=== PATIENT | male | born 1955 | race Two or more races ===

== ENCOUNTER → 2024-08-11 | Outpatient (CLI) | payer OTHER, SELFPAY ==
[2024-08-11 11:30] LABS: Basophils % (Auto) 1 % (0-2.5); Eosinophils # (Auto) 0.1 Thou/mm3 (0.0-0.5); Eosinophils % (Auto) 2 % (0-10); Hematocrit 41.7 % (41.0-53.0); Hemoglobin 14.6 g/dL (13.5-16.0); Immature Granulocytes % (Auto) 0 % (0-0); Immature Granulocytes Auto 0.01 Thou/mm3 (0.00-0.00); Lymphocytes # (Auto) 1.3 Thou/mm3 (1.0-4.8); Lymphocytes % (Auto) 31 % (10-50); Mean Corpuscular Volume 91 fL (80-100); Monocytes # (Auto) 0.4 Thou/mm3 (0.0-0.8); Monocytes % (Auto) 9 % (0-12); Neutrophils # (Auto) 2.4 Thou/mm3 (1.8-7.7); Neutrophils % (Auto) 58 % (37-80); Nucleated Red Blood Cell % 0 /100 WBC (0); Platelet Count 191 Thou/mm3 (140-440); RDW Standard Deviation 42.9 fL (35.1-43.9); Red Blood Count 4.56 Miln/mm3 (4.50-5.90); White Blood Count 4.2 Thou/mm3 (3.8-10.6)
[2024-08-11 11:47] LABS: B-Type Natriuretic Peptide < 20 pg/mL (0-100)
[2024-08-11 11:55] LABS: Alanine Aminotransferase 30 U/L (10-49); Albumin, Serum 4.4 gm/dL (3.4-4.8); Albumin/Globulin Ratio 1.8 (1.2-2.2); Alkaline Phosphatase 86 U/L (46-116); Anion Gap 5 (7-16); Aspartate Amino Transferase 23 U/L (0-34); BUN/Creatinine Ratio 19 Ratio (12-20); Blood Urea Nitrogen 17 mg/dL (9-23); Calcium 9.5 mg/dL (8.3-10.6); Calcium (Corrected) 9.5 mg/dL (8.5-10.1); Carbon Dioxide 25.6 mMol/L (20.0-31.0); Chloride 106 mMol/L (98-107); Creatinine (Component) 0.9 mg/dL (0.6-1.3); Globulin 2.5 gm/dL (2.3-3.5); Glucose 113 mg/dL (74-106); Osmolality,Calculated 276 (275-295); Sodium 137 mMol/L (136-145); Total Protein 6.9 gm/dL (5.7-8.2); eGFR > 60 See Note
[2024-08-11 12:21] LABS: Collection Type, Urine Clean Catch
[2024-08-11 12:54] LABS: Bilirubin,Urine Negative (Negative); Blood,Urine Negative (Negative); Clarity,Urine Clear (Clear/Hazy); Color,Urine Lt-Yellow (Lt Yel-Yel); Culture Indicated,Urine Not Indicated; Glucose, Urine Negative (Negative); Ketones,Urine Negative (Negative); Leukocyte Esterase,Urine Negative (Negative); Nitrite,Urine Negative (Negative); PH,Urine 6.5 (5.0-7.0); Protein,Urine Negative (Neg - Trace); RBC,Urine 1 /hpf (0-3); Specific Gravity,Urine 1.016 (1.001-1.035); Squamous Epithelial Cell,Urine < 1 /hpf (0-5); Urobilinogen,Urine Negative mg/dL (0.0-1.0); WBC,Urine 1 /hpf (0-5)
[2024-08-19 19:50] LABS: PSA, Free 2.31 ng/mL; PSA, Total 11.6 ng/mL (< OR = 4.0)
== END | disposition home or self-care (01) ==
LOC: CDIM 10:30 → COPL 10:50
PROVIDERS: Referring Provider Nurse Practitioner Family; Visit Provider Nurse Practitioner Family
DX: R22.41 Localized swelling, mass and lump, right lower limb (principal); D72.819 Decreased white blood cell count, unspecified
CPT/HCPCS: 36415; 80053; 81001; 83880; 84153; 84154; 85025

== ENCOUNTER 2025-04-02 15:16 | Emergency (ER) | payer OTHER, SELFPAY ==
[2025-04-02 15:25] VITALS: BP 178/72; PULSE 86; RESP 20; TEMP 38.2; O2SAT 95
--- NOTE | 2025-04-02 15:43 | XR_ITS ---
Examination: CT abdomen and pelvis without contrast. Coronal 3-D reconstructions. Sagittal 2-D reconstructions. Date and time of exam:April 02, 2025, 1614 hours COMPARISON: November 29, 2022 INDICATIONS: Lower abdominal pain and hematuria today, history of prostatomegaly CTDI: vol (mGy): 12.3. DLP: (mGycm): 780. Technique: Axial images of the abdomen have been obtained, 3 mm slice thickness Intravenous contrast material has not been administered. Low dose protocols were performed. One or more of the following dose reduction techniques were used; automated exposure control, adjustment of the mA and/or KV according to patient size, use of iterative reconstruction technique. Findings: 2 mm, adjacent 2 mm pulmonary nodules left lower lobe No visualized liver or splenic lesion Contracted gallbladder No biliary tract dilatation No pancreatic or adrenal mass Mild bilateral hydronephrosis No pericecal inflammatory change No bowel obstruction or diverticulitis Marked distention of the urinary bladder Massive prostatomegaly, AP dimension 8.6 cm Urinary bladder wall thickening up to 5 mm Moderate osteopenia IMPRESSION: Subcentimeter pulmonary nodules left lower lobe, recommend PA lateral chest follow-up Mild bilateral hydronephrosis, markedly distended urinary bladder secondary to massive prostatomegaly Urinary bladder wall thickening, likely early outflow obstruction secondary to the patient's prostatomegaly
--- NOTE | 2025-04-02 15:44 | PD.EDRME ---
Rapid Medical Screening Exam RME Arrival date/time: 04/02/25 15:16 69-year-old male with no known medical history presents to the emergency room with a chief complaint of hematuria, dysuria and feeling like he is not fully emptying his bladder. Patient also states he is having abdominal pain and distention x 3 days I have greeted and performed a focused initial assessment of this patient. A comprehensive ED assessment and evaluation of the patient, analysis of all test results, and completion of the medical decision making process will be conducted by additional ED providers. Chief Complaint: Urogenital-Male Time Seen by Provider: 04/02/25 15:18 Vital signs: Vital Signs Temperature 100.7 F H 04/02/25 15:25 Pulse Rate 86 04/02/25 15:25 Respiratory Rate 20 04/02/25 15:25 Blood Pressure 178/72 H 04/02/25 15:25 Pulse Oximetry (%) 95 04/02/25 15:25 Oxygen Delivery Method Room Air 04/02/25 15:25 Vital signs reviewed by provider: Yes
[2025-04-02 16:14] LABS: Basophils % (Auto) 1 % (0-2.5); Eosinophils # (Auto) 0.1 Thou/mm3 (0.0-0.5); Eosinophils % (Auto) 1 % (0-10); Hematocrit 34.3 % (41.0-53.0); Hemoglobin 12.2 g/dL (13.5-16.0); Immature Granulocytes % (Auto) 0 % (0-0); Immature Granulocytes Auto 0.03 Thou/mm3 (0.00-0.00); Lymphocytes # (Auto) 1.3 Thou/mm3 (1.0-4.8); Lymphocytes % (Auto) 17 % (10-50); Mean Corpuscular HGB Conc 35.6 g/dl (31.0-37.0); Mean Corpuscular Hemoglobin 31.9 pg (25.0-35.0); Mean Corpuscular Volume 90 fL (80-100); Monocytes # (Auto) 0.7 Thou/mm3 (0.0-0.8); Monocytes % (Auto) 9 % (0-12); Neutrophils # (Auto) 5.7 Thou/mm3 (1.8-7.7); Neutrophils % (Auto) 73 % (37-80); Nucleated Red Blood Cell % 0 /100 WBC (0); Platelet Count 229 Thou/mm3 (140-440); RDW Standard Deviation 41.7 fL (35.1-43.9); Red Blood Count 3.83 Miln/mm3 (4.50-5.90); White Blood Count 7.9 Thou/mm3 (3.8-10.6)
[2025-04-02 16:35] LABS: Collection Type, Urine Clean Catch
[2025-04-02 16:36] LABS: Squamous Epithelial Cell,Urine 0 /hpf (0-5)
[2025-04-02] MEDS: HYDROcodone/APAP 5/325 TABLET 1 TAB PO (16:37)
[2025-04-02 16:39] LABS: Alanine Aminotransferase 13 U/L (10-49); Albumin, Serum 4.2 gm/dL (3.4-4.8); Albumin/Globulin Ratio 1.3 (1.2-2.2); Alkaline Phosphatase 99 U/L (46-116); Anion Gap 7 (7-16); Aspartate Amino Transferase 20 U/L (0-34); BUN/Creatinine Ratio 8 Ratio (12-20); Blood Urea Nitrogen 12 mg/dL (9-23); Calcium 9.2 mg/dL (8.3-10.6); Calcium (Corrected) 9.2 mg/dL (8.5-10.1); Chloride 105 mMol/L (98-107); Creatinine (Component) 1.5 mg/dL (0.6-1.3); Globulin 3.2 gm/dL (2.3-3.5); Glucose 111 mg/dL (74-106); Lipase 32 U/L (12-53); Osmolality,Calculated 281 (275-295); Potassium 3.6 mMol/L (3.4-5.1); Sodium 141 mMol/L (136-145); Total Protein 7.4 gm/dL (5.7-8.2); eGFR 49 See Note
[2025-04-02 16:44] LABS: Bacteria,Urine 2+; Bilirubin,Urine Negative (Negative); Blood,Urine 3+ (Negative); Color,Urine Brown (Lt Yel-Yel); Glucose, Urine Negative (Negative); Ketones,Urine Negative (Negative); Leukocyte Esterase,Urine Positive (Negative); Nitrite,Urine Positive (Negative); PH,Urine 6.5 (5.0-7.0); Protein,Urine 1+ (Neg - Trace); RBC,Urine 375 /hpf (0-3); Specific Gravity,Urine 1.007 (1.001-1.035); Urobilinogen,Urine Negative mg/dL (0.0-1.0); WBC,Urine 517 /hpf (0-5)
[2025-04-02 17:13] LABS: Clarity,Urine Hazy (Clear/Hazy)
--- NOTE | 2025-04-02 18:11 | EDNOTE_ITS ---
<Statement entered by Qing Reese MD - 04/02/25 18:52> As co-signing physician, I was present and available for consult prn. I concur with the plan and care as documented by the midlevel provider. ED Male Genitalurinary RME/HPI General Chief complaint: Urogenital-Male Stated complaint: Urinating blood today, bump to the top of his head Time Seen by Provider: 04/02/25 15:18 Arrival date/time: 04/02/25 15:16 RME / HPI RME / HPI Narrative: 69-year-old male with no known medical history presents to the emergency room with a chief complaint of hematuria, dysuria and feeling like he is not fully emptying his bladder. Patient also states he is having abdominal pain and distention x 3 days. Patient also complained of a bump to the top of the head for several months. Pending referral to carpenter assembler. Patient denies any fever denies any other complaints no medication was taken prior to arrival. Related Data Previous Rx's ?Medication ?Instructions ?Recorded levofloxacin 500 mg tablet 500 mg PO QDAY #7 tabs 07/08 11/26 ibuprofen 600 mg tablet 600 mg PO Q6H #30 tabs 07/17 cefuroxime axetil 500 mg tablet 500 mg PO BID #14 tabs 04/02/25 tamsulosin 0.4 mg capsule (Flomax) 0.4 mg PO QDAY #30 caps 04/02/25 Allergies Allergy/AdvReac Type Severity Reaction Status Date / Time No Known Allergies Allergy Verified 04/02/25 15:21 Review of Systems Review of Systems Narrative Review of Systems: Review of system reviewed and within normal limits except mentioned in HPI ED Exam Narrative Physical exam: VITAL SIGNS: Reviewed. GENERAL APPEARANCE: Alert and interactive, follows commands, no acute distress, HEAD AND FACE: Non-traumatic. ENT: PERRL, pink conjunctivitis, eyelid no trauma, Mucous membrane moist. NECK: Supple, nontender, no nuchal rigidity. CHEST: No tenderness, no crepitus, no paradoxical movement, no retractions. LUNGS: Clear, well ventilated, symmetric, no rales, no wheezing, no ronchi, no stridor, good breath sounds bilaterally. HEART: Regular rate, regular rhythm, no murmur, no gallops. ABDOMEN: Soft, positive bowel sounds, nondistended, no guarding, nontender, no r ebound, no masses, suprapubic distention RECTAL: Deferred. GENITAL: Deferred. NEUROLOGICAL: Gross motor function intact sensory function intact, Appropriate for age. MUSCULOSKELETAL: low back nontender, full range of motion. EXTREMITIES: Nontender, full range of motion. SKIN: Color pink, dry, no rash, no lacerations, no abrasions, no contusions. LYMPHATICS: Deferred. Course Quality Measures none Orders Category Date Time Status Franco [Urinary Catheter] QS Care 04/02/25 18:10 Active Franco to Leg Bag Routine Care 04/02/25 18:[address] abdomen pelvis wo con Stat Exams 04/02/25 15:43 Completed CBC Stat Lab 04/02/25 16:02 Completed CMP [Comprehensive Metabolic Panel] Stat Lab 04/02/25 16:02 Completed Lipase Stat Lab 04/02/25 16:02 Completed UA [Urinalysis] Stat Lab 04/02/25 16:23 Completed Urine Culture Stat Lab 04/02/25 16:23 Received 1,000 mg IM w/Lido* 1% Med 04/02/25 18:10 Ordered cefTRIAXone [Rocephin] 1,000 mg Lidocaine 1% 20 ml [Xylocaine 1% 20 ML] 2.1 ml IM X1 HYDROcodone*/APAP 5/325 [[place] 5/325] Med 04/02/25 15:42 Discontinued 1 tab PO X1 ONE Vital Signs Vital signs: Vital Signs Temperature 100.7 F H 04/02/25 15:25 Pulse Rate 86 04/02/25 15:25 Respiratory Rate 20 04/02/25 15:25 Blood Pressure 178/72 H 04/02/25 15:25 Pulse Oximetry (%) 95 04/02/25 15:25 Oxygen Delivery Method Room Air 04/02/25 15:25 Urogenital - Male MDM Narrative MDM Narrative:: 69-year-old male with no known medical history presents to the emergency room with a chief complaint of hematuria, dysuria and feeling like he is not fully emptying his bladder. Patient also states he is having abdominal pain and distention x 3 days. Patient also complained of a bump to the top of the head for several months. Pending referral to carpenter assembler. Patient denies any fever denies any other complaints no medication was taken prior to arrival. Laboratory workup is significant for hematuria and urinary tract infection patient's creatinine today was noted to be 1.5. Franco catheter was inserted and was able to drain more than 500 cc of pinkish colored urine no blood clots noted CT scan of the abdomen pelvis showed prostatomegaly with distended bladder otherwise unremarkable. Patient will be sent home on Franco catheter Patient was given ceftriaxone IM Patient data External records reviewed:: None Clinical information provided by:: patient Social determinants that could affect healthcare access:: none Patient has the following chronic illnesses:: None How is presenting disease/condition affected by chronic disease/condition?: no chronic disease Evaluation data The following diagnostics were reviewed and interpreted by me:: lab results and radiology exam(s) Lab and/or radiology exams considered but not ordered:: None Interpretation Summary: See results MDM Medications / Prescriptions Medications or Prescriptions considered but not ordered:: None Medication administrations:: Medication Administration History Discontinued Medications Hydrocodone Bitart/Acetaminophen (Hydrocodone/Apap 5/325 Tablet) 1 tab PO X1 ONE Stop: 04/02/25 15:43 Last Admin: 04/02/25 16:37 Dose: 1 tab Documented By: JULIUS Ceftriaxone and [place] Consultations Consultation(s) initiated? (list below): No Diagnosis Urogenital Male Differential Diagnosis: urinary tract infection and acute retention of urine Most likely diagnosis given after review of the tests above:: Acute urine retention, UTI, BPH Admission Indicated Admission indicated?: not indicated Admission Request Was there a request for admission?: No Disposition Plan Disposition Plan: Discharge Discharge Attestation Discharge Attestation: The patient and all family members were given an opportunity to ask questions and understood the discharge instructions. Discharge instructions specifically effects, indications for sooner follow up or return to the emergency department, and the expected course of current diagnosis. Patient condition: Stable Discharge Plan Plan Patient Disposition: HOME (Self Care) Discharge Disposition comment: Stable Prescriptions/Referrals Prescriptions/Med Rec: New cefuroxime axetil 500 mg tablet 500 mg PO BID Qty: 14 0RF tamsulosin [Flomax] 0.4 mg capsule 0.4 mg PO QDAY Qty: 30 0RF No Action levofloxacin 500 mg tablet 500 mg PO QDAY Qty: 7 0RF ibuprofen 600 mg tablet 600 mg PO Q6H Qty: 30 0RF Referrals: Elmer Rivers MD [Primary Care Provider] - In 1 week Problem List Clinical Impression: Urinary tract infection, Acute urinary retention, BPH (benign prostatic hyperplasia) Patient/Caregiver Discharge Instructions Discharge Activity: activity as tolerated Education Materials: ED Urinary Retention, Male, ED Bladder Infection, Male (Adult) Additional Instructions: Thank you for the opportunity for serving you today. You are stable for discharged . You are advised to: Follow-up with your PCP in 1 to 2 days Return to ED for worsening of symptoms Increase oral fluids Take medication as prescribed Ask your PCP today for you to a urologist Print Language: Palestinian Stand Alone Forms: Radha Award Info., Patient Portal Info Letter PA/HIGHWAY PAINTER Supervising Physician PA/HIGHWAY PAINTER Supervising Physician: MD Hugh
[2025-04-02] MEDS: cefTRIAXone 1,000 MG, LIDOCAINE 1% 20 ML 2.1 ML IM (18:30)
[2025-04-02 18:54] VITALS: BP 119/86; PULSE 68; RESP 18; TEMP 36.6; O2SAT 98
--- NOTE | 2025-04-02 18:56 | PC.NURSE ---
pts catherter placed and given a leg bag upon exitcarehome
== END 2025-04-02 18:56 | disposition home or self-care (01) ==
PROVIDERS: Nurse Practitioner Family; Emergency Provider Emergency Medicine; PCP Family Medicine
DX: N40.0 Benign prostatic hyperplasia without lower urinary tract symptoms (principal); R33.8 Other retention of urine; N39.0 Urinary tract infection, site not specified; R31.9 Hematuria, unspecified
CPT/HCPCS: 51702; 36415; 74176; 80053; 81001; 83690; 85025; 87077; 87086; 87186; 96372; 99284; A4314; J0696; J3490; A9270

== ENCOUNTER 2025-04-23 10:30 | Emergency (ER) | payer OTHER, SELFPAY ==
[2025-04-23 10:45] VITALS: BP 131/68; PULSE 74; RESP 18; TEMP 37; O2SAT 98; BMI 33.0
--- NOTE | 2025-04-23 10:55 | EDNOTE_ITS ---
ED Male Genitalurinary RME/HPI General Chief complaint: Urogenital-Male Stated complaint: needs catheter removed Time Seen by Provider: 04/23/25 10:42 Source: patient Arrival date/time: 04/23/25 10:30 69-year-old male with a history of BPH presents to the emergency room with a chief complaint of wanting to get his catheter removed. Mode of arrival: ambulatory Limitations: no limitations Related Data Previous Rx's ?Medication ?Instructions ?Recorded levofloxacin 500 mg tablet 500 mg PO QDAY #7 tabs 07/08 11/26 ibuprofen 600 mg tablet 600 mg PO Q6H #30 tabs 07/17 cefuroxime axetil 500 mg tablet 500 mg PO BID #14 tabs 04/02/25 tamsulosin 0.4 mg capsule (Flomax) 0.4 mg PO QDAY #30 caps 04/02/25 Allergies Allergy/AdvReac Type Severity Reaction Status Date / Time No Known Allergies Allergy Verified 04/23/25 10:32 Review of Systems Review of Systems Systems Reviewed: All systems reviewed, normal except as documented Constitutional Constitutional: Reports system reviewed and no additional complaints, except as documented, Denies fatigue, Denies fever(s), Denies headache(s) and Denies weakness Eyes Eyes: Reports system reviewed and no additional complaints, except as documented, Denies blurry vision and Denies change in vision ENT Ears, Nose, Mouth, and Throat: Reports system reviewed and no additional complaints, except as documented, Denies otalgia, Denies headache(s), Denies nasal congestion, Denies throat swelling and Denies vertigo Cardiovascular Cardiovascular: Reports system reviewed and no additional complaints, except as documented, Denies chest pain, Denies dyspnea and Denies dyspnea on exertion Respiratory Respiratory: Reports system reviewed and no additional complaints, except as documented, Denies chest congestion, Denies cough, Denies dyspnea, Denies dyspnea on exertion and Denies wheezing Gastrointestinal Gastrointestinal: Reports system reviewed and no additional complaints, except as documented, Denies abdominal pain, Denies cramping, Denies nausea and Denies vomiting Genitourinary Genitourinary: Reports system reviewed and no additional complaints, except as documented, Denies dysuria and Denies hematuria Musculoskeletal Musculoskeletal: Reports system reviewed and no additional complaints, except as documented and Denies back pain Integumentary/Breasts Skin/Breast: Reports system reviewed and no additional complaints, except as documented and Denies wounds Neurologic Neurologic: Reports system reviewed and no additional complaints, except as documented, Denies confusion, Denies headache(s), Denies lack of coordination, Denies vertigo and Denies weakness Psychiatric Psychiatric: Reports system reviewed and no additional complaints, except as documented, Denies anxiety, Denies confusion, Denies depression, Denies paranoia, Denies suicidal ideation and Denies tactile hallucinations Endocrine Endocrine: Reports system reviewed and no additional complaints, except as documented and Denies fatigue Hematologic/Lymphatic Hematologic/Lymphatic: Reports system reviewed and no additional complaints, except as documented and Denies lymphadenopathy Allergic/Immunologic Allergic/Immunologic: Reports system reviewed and no additional complaints, except as documented, Denies throat swelling, Denies urticaria and Denies wheezing Past Medical History Past Medical History CARDIAC: Negative Cardiac Disorders or Congestive Heart Failure RESPIRATORY: Negative Chronic Obstructive Pulmonary Disease (COPD) or Asthma GENITOURINARY: Negative Renal Disease ENDOCRINE: Negative Diabetes Mellitus Type 1 or Diabetes Mellitus Type 2 HEMATOLOGIC: Negative Sickle Cell Disease Social History SMOKING STATUS: Never smoker ED Exam General Limitations: Present no limitations General appearance: Present alert and in no apparent distress Head Head exam: Present atraumatic Eye Eye exam: Present normal appearance, PERRL and EOMI ENT ENT exam: Present normal exam, normal oropharynx and mucous membranes moist Neck Neck exam: Present normal inspection, full ROM and trachea midline Chest Chest inspection: Present normal inspection and symmetric chest wall rise Respiratory Respiratory exam: Present normal lung sounds bilaterally Cardiovascular Cardiovascular exam: Present regular rate, normal rhythm and normal heart sounds Abdominal Exam Abdominal exam: Present soft and normal bowel sounds Extremities Exam Extremities exam: Present normal inspection and full ROM Back Exam Back exam: Present normal inspection and full ROM Neurological Exam Neurological exam: Present alert, oriented X3 and CN II-XII intact Psychiatric Psychiatric exam: Present normal affect and normal mood Skin Skin exam: Present warm, dry, intact and normal color Course Quality Measures none Orders Category Date Time Status Franco [Urinary Catheter, Remove] ONCE Care 04/23/25 10:55 Active Vital Signs Vital signs: Vital Signs Temperature 98.6 F 04/23/25 10:45 Pulse Rate 74 04/23/25 10:45 Respiratory Rate 18 04/23/25 10:45 Blood Pressure 131/68 H 04/23/25 10:45 Pulse Oximetry (%) 98 04/23/25 10:45 Oxygen Delivery Method Room Air 04/23/25 10:45 Urogenital - Male MDM Narrative MDM Narrative:: 69-year-old male with a history of BPH presents to the emergency room with a chief complaint of wanting to get his catheter removed. Patient states he was seen here in the emergency room for hematuria and urinary retention. Patient states he was given antibiotics which she completed already. Patient states he was seen by his primary care provider and a referral for urologist was placed but due to his other medical problems he states that it is going to take a long time to see the urologist. Patient states he wants his catheter removed and if his symptoms continue he will return to the emergency room. The patient was educated that urinary retention and hematuria can return again but patient still adamant about removing catheter. Physical examination did not show any tenderness to his abdomen. There is no hematuria in his leg bag. Patient states his catheter has been draining with no complications. Catheter was removed with no complications. Patient was educated to return to the emergency room for any evidence of worsening signs or symptoms Patient data External records reviewed:: [facility] previous records Clinical information provided by:: patient Social determinants that could affect healthcare access:: none Patient has the following chronic illnesses:: BPH How is presenting disease/condition affected by chronic disease/condition?: caused by Evaluation data The following diagnostics were reviewed and interpreted by me:: lab results and radiology exam(s) Lab and/or radiology exams considered but not ordered:: Labs and radiology exams considered in order Interpretation Summary: N/A Medications / Prescriptions Medications or Prescriptions considered but not ordered:: Medication not given Medication administrations:: Medication not given Consultations Consultation(s) initiated? (list below): No Diagnosis Urogenital Male Differential Diagnosis: urinary tract infection, prostatitis, acute retention of urine and other (Removal of catheter) Most likely diagnosis given after review of the tests above:: Urinary catheter removal Admission Indicated Admission indicated?: not indicated Admission Request Was there a request for admission?: No Disposition Plan Disposition Plan: Discharge Discharge Attestation Discharge Attestation: The patient and all family members were given an opportunity to ask questions and understood the discharge instructions. Discharge instructions specifically effects, indications for sooner follow up or return to the emergency department, and the expected course of current diagnosis. Patient condition: Stable Discharge Plan Plan Patient Disposition: HOME (Self Care) Discharge Disposition comment: Stable Prescriptions/Referrals Prescriptions/Med Rec: No Action levofloxacin 500 mg tablet 500 mg PO QDAY Qty: 7 0RF ibuprofen 600 mg tablet 600 mg PO Q6H Qty: 30 0RF cefuroxime axetil 500 mg tablet 500 mg PO BID Qty: 14 0RF tamsulosin [Flomax] 0.4 mg capsule 0.4 mg PO QDAY Qty: 30 0RF Problem List Clinical Impression: Encounter for removal of urinary catheter Patient/Caregiver Discharge Instructions Additional Instructions: Please follow-up with your urologist in the next 24 to 48 hours Your catheter was removed. For any evidence of worsening signs or symptoms return to the emergency room immediately Print Language: [place] Stand Alone Forms: Radha Award Info., Patient Portal Info Letter PA/HEATER TENDER Supervising Physician PA/REYES Supervising Physician: Dr. Flores
== END 2025-04-23 11:18 | disposition home or self-care (01) ==
LOC: SERX 11:11
PROVIDERS: Emergency Provider Family Medicine; PCP Internal Medicine
DX: Z46.6 Encounter for fitting and adjustment of urinary device (principal); N40.0 Benign prostatic hyperplasia without lower urinary tract symptoms
CPT/HCPCS: 99283

== ENCOUNTER 2025-04-29 09:05 | Emergency (ER) | payer OTHER, SELFPAY ==
[2025-04-29 09:41] VITALS: BP 116/60; PULSE 83; RESP 17; TEMP 37.1; O2SAT 98; BMI 36.0
--- NOTE | 2025-04-29 09:44 | PD.EDMALE ---
ED Male Genitalurinary RME/HPI General Chief complaint: Urogenital-Male Stated complaint: poss. UTI needs catheter Time Seen by Provider: 04/29/25 09:20 Arrival date/time: 04/29/25 09:05 Limitations: no limitations RME / HPI RME / HPI Narrative: DR. COREY ARTEAGA ED EVALUATION: 69-year-old male with past medical history of enlarged prostate presents to the Emergency Department with complaint of urinary retention and suspected UTI. Patient reports he urinated a small amount prior to arrival and has had difficulty urinating since his Franco catheter was recently removed. He believes he has a UTI. Denies fever, chills, nausea, vomiting, or blood in stool. No hypertension, hyperlipidemia, or diabetes history. Related Data Previous Rx's ?Medication ?Instructions ?Recorded levofloxacin 500 mg tablet 500 mg PO QDAY #7 tabs 07/28/20 ibuprofen 600 mg tablet 600 mg PO Q6H #30 tabs 07/17/23 cefuroxime axetil 500 mg tablet 500 mg PO BID #14 tabs 04/02/25 tamsulosin 0.4 mg capsule (Flomax) 0.4 mg PO QDAY #30 caps 04/02/25 cephalexin 500 mg capsule 500 mg PO Q6H #42 caps 04/29/25 Allergies Allergy/AdvReac Type Severity Reaction Status Date / Time No Known Allergies Allergy Verified 04/29/25 09:08 Review of Systems Review of Systems Systems Reviewed: All systems reviewed, normal except as documented Past Medical History Social History SMOKING STATUS: Never smoker SUBSTANCE USE: does not use ALCOHOL: Never ED Exam General Limitations: Present no limitations General appearance: Present alert and in no apparent distress Head Head exam: Present atraumatic, normocephalic and normal inspection Eye Eye exam: Present normal appearance, PERRL and EOMI ENT ENT exam: Present normal exam, normal oropharynx and mucous membranes moist Neck Neck exam: Present normal inspection, full ROM and trachea midline Chest Chest inspection: Present normal inspection and symmetric chest wall rise Respiratory Respiratory exam: Present normal lung sounds bilaterally Cardiovascular Cardiovascular exam: Present regular rate, normal rhythm and normal heart sounds Abdominal Exam Abdominal exam: Present soft and normal bowel sounds Extremities Exam Extremities exam: Present normal inspection and full ROM Back Exam Back exam: Present normal inspection and full ROM Neurological Exam Neurological exam: Present alert, oriented X3 and CN II-XII intact Psychiatric Psychiatric exam: Present normal affect and normal mood Skin Skin exam: Present warm, dry, intact and normal color Course Quality Measures none Orders Category Date Time Status Franco [Urinary Catheter] QS Care 04/29/25 09:43 Active UA, C/S IF [Urinalysis, C/S if Indicated] Stat Lab 04/29/25 09:54 Completed Urine Culture Stat Lab 04/29/25 09:54 Received Acetaminophen Tab [Tylenol ES Tab] Med 04/29/25 09:44 Discontinued 500 mg PO NOW ONE cefTRIAXone [Rocephin] 1,000 mg Med 04/29/25 11:08 Discontinued Lidocaine 1% 20 ml [Xylocaine 1% 20 ML] 2.1 ml IM X1 Vital Signs Vital signs: Vital Signs Temperature 98.8 F 04/29/25 09:41 Pulse Rate 83 04/29/25 09:41 Respiratory Rate 17 04/29/25 09:41 Blood Pressure 116/60 04/29/25 09:41 Pulse Oximetry (%) 98 04/29/25 09:41 Oxygen Delivery Method Room Air 04/29/25 09:41 Urogenital - Male MDM Narrative MDM Narrative:: IRebeca am scribing for and in the presence of Dr. Prajapati. Patient is a 69-year-old male with medical history notable for BPH, chronic urinary tension present emergency department requesting that his Franco catheter be replaced. Vital signs and exam as above. Concern for urinary tract infection, urinary retention. Patient nonseptic nontoxic at this time, abdomen soft nondistended nontender. Ordered urinalysis as well as postvoid residual bladder scan. PVR greater than 900 cc in his bladder. Placed Franco catheter, draining well no complications. Urinalysis with evidence of infection, provided antibiotics. On reevaluation patient hemodynamically stable not in distress advised to follow-up with his urologist and his primary care doctor as an outpatient. Patient states he does have a urologist. Patient data External records reviewed:: [facility] previous records Clinical information provided by:: patient Social determinants that could affect healthcare access:: none Patient has the following chronic illnesses:: enlarged prostate How is presenting disease/condition affected by chronic disease/condition?: exacerbated by Evaluation data The following diagnostics were reviewed and interpreted by me:: lab results Lab and/or radiology exams considered but not ordered:: none Interpretation Summary: urine shows an UTI Medications / Prescriptions Medications or Prescriptions considered but not ordered:: none Medication administrations:: Medication Administration History Discontinued Medications Acetaminophen (Acetaminophen 500 Mg Tablet) 500 mg PO NOW ONE Stop: 04/29/25 09:45 Last Admin: 04/29/25 10:38 Dose: 500 mg Documented By: DANYEL Ceftriaxone Sodium 1,000 mg/ (Lidocaine HCl 2.1 ml) 0 mg IM X1 ONE Stop: 04/29/25 11:09 Last Admin: 04/29/25 11:37 Dose: 1,000 mg Documented By: DANYEL see above Consultations Consultation(s) initiated? (list below): No Diagnosis Urogenital Male Differential Diagnosis: other (UTI, benign prostatic hyperplasia with obstruction, and post-Rfanco removal urinary retention) Most likely diagnosis given after review of the tests above:: UTI Admission Indicated Admission indicated?: not indicated Admission Request Was there a request for admission?: No Disposition Plan Disposition Plan: Discharge Discharge Attestation Discharge Attestation: The patient and all family members were given an opportunity to ask questions and understood the discharge instructions. Discharge instructions specifically effects, indications for sooner follow up or return to the emergency department, and the expected course of current diagnosis. Patient condition: Stable Discharge Plan Plan Patient Disposition: HOME (Self Care) Prescriptions/Referrals Prescriptions/Med Rec: New cephalexin 500 mg capsule 500 mg PO Q6H Qty: 42 0RF No Action levofloxacin 500 mg tablet 500 mg PO QDAY Qty: 7 0RF ibuprofen 600 mg tablet 600 mg PO Q6H Qty: 30 0RF cefuroxime axetil 500 mg tablet 500 mg PO BID Qty: 14 0RF tamsulosin [Flomax] 0.4 mg capsule 0.4 mg PO QDAY Qty: 30 0RF Problem List Clinical Impression: Urinary tract infection, Acute on chronic urinary retention Patient/Caregiver Discharge Instructions Education Materials: ED Franco Catheter, Care Additional Instructions: Please follow up with your urologist this week and discuss your urinary retention. Print Language: Divehi Stand Alone Forms: Radha Award Info., Patient Portal Info Letter
[2025-04-29 10:00] LABS: Collection Type, Urine Clean Catch; Squamous Epithelial Cell,Urine 0 /hpf (0-5)
--- NOTE | 2025-04-29 10:00 | PC.NURSE ---
BLADDER SCANNER SHOWED AN AVERAGE OF 1000ML OF URINE IN BLADDER. PT CURRENTLY IN DISCOMFORT.
[2025-04-29 10:11] LABS: Bacteria,Urine 4+; Bilirubin,Urine Negative (Negative); Blood,Urine 2+ (Negative); Color,Urine Yellow (Lt Yel-Yel); Glucose, Urine Negative (Negative); Hyaline Casts,Urine 1 /hpf (0-1); Ketones,Urine Negative (Negative); Leukocyte Esterase,Urine Positive (Negative); Nitrite,Urine Negative (Negative); PH,Urine 6.0 (5.0-7.0); Protein,Urine 1+ (Neg - Trace); RBC,Urine 3 /hpf (0-3); Specific Gravity,Urine 1.011 (1.001-1.035); Urobilinogen,Urine Negative mg/dL (0.0-1.0); WBC,Urine 2491 /hpf (0-5)
[2025-04-29 10:12] LABS: Clarity,Urine Cloudy (Clear/Hazy); Culture Indicated,Urine Yes
[2025-04-29] MEDS: ACETAMINOPHEN 500 MG TABLET PO (10:38)
[2025-04-29] MEDS: cefTRIAXone 1,000 MG, LIDOCAINE 1% 20 ML 2.1 ML IM (11:37)
== END 2025-04-29 11:43 | disposition home or self-care (01) ==
LOC: SERX 12:16
PROVIDERS: Emergency Provider Emergency Medicine
DX: N39.0 Urinary tract infection, site not specified (principal); N40.1 Benign prostatic hyperplasia with lower urinary tract symptoms; R33.8 Other retention of urine
CPT/HCPCS: 51702; 81001; 87077; 87086; 87186; 96372; 99283; J0696; J3490; A9270

== ENCOUNTER 2025-06-15 11:14 | Emergency (ER) | payer OTHER, SELFPAY ==
[2025-06-15 11:27] VITALS: BP 168/72; PULSE 82; RESP 18; TEMP 36.9; O2SAT 95
--- NOTE | 2025-06-15 12:05 | PD.EDMALE ---
ED Male Genitalurinary RME/HPI General Chief complaint: General Adult/Misc Complain Stated complaint: NEEDS DOBSON CHANGED Time Seen by Provider: 06/15/25 11:37 Source: patient Arrival date/time: 06/15/25 11:14 69-year-old male with history of BPH presents to the emergency room with a chief complaint of needing his Dobson catheter changed. Patient states he has had it in place for 4 months. Mode of arrival: ambulatory Limitations: no limitations Related Data Previous Rx's ?Medication ?Instructions ?Recorded levofloxacin 500 mg tablet 500 mg PO QDAY #7 tabs 07/28/20 ibuprofen 600 mg tablet 600 mg PO Q6H #30 tabs 07/17/23 cefuroxime axetil 500 mg tablet 500 mg PO BID #14 tabs 04/02/25 tamsulosin 0.4 mg capsule (Flomax) 0.4 mg PO QDAY #30 caps 04/02/25 cephalexin 500 mg capsule 500 mg PO Q6H #42 caps 04/29/25 Allergies Allergy/AdvReac Type Severity Reaction Status Date / Time No Known Allergies Allergy Verified 06/15/25 11:16 Review of Systems Review of Systems Systems Reviewed: All systems reviewed, normal except as documented Constitutional Constitutional: Reports system reviewed and no additional complaints, except as documented, Denies fatigue, Denies fever(s), Denies headache(s) and Denies weakness Eyes Eyes: Reports system reviewed and no additional complaints, except as documented, Denies blurry vision and Denies change in vision ENT Ears, Nose, Mouth, and Throat: Reports system reviewed and no additional complaints, except as documented, Denies otalgia, Denies headache(s), Denies nasal congestion, Denies throat swelling and Denies vertigo Cardiovascular Cardiovascular: Reports system reviewed and no additional complaints, except as documented, Denies chest pain, Denies dyspnea and Denies dyspnea on exertion Respiratory Respiratory: Reports system reviewed and no additional complaints, except as documented, Denies chest congestion, Denies cough, Denies dyspnea, Denies dyspnea on exertion and Denies wheezing Gastrointestinal Gastrointestinal: Reports system reviewed and no additional complaints, except as documented, Denies abdominal pain, Denies cramping, Denies nausea and Denies vomiting Genitourinary Genitourinary: Reports system reviewed and no additional complaints, except as documented, Denies dysuria and Denies hematuria Musculoskeletal Musculoskeletal: Reports system reviewed and no additional complaints, except as documented and Denies back pain Integumentary/Breasts Skin/Breast: Reports system reviewed and no additional complaints, except as documented and Denies wounds Neurologic Neurologic: Reports system reviewed and no additional complaints, except as documented, Denies confusion, Denies headache(s), Denies lack of coordination, Denies vertigo and Denies weakness Psychiatric Psychiatric: Reports system reviewed and no additional complaints, except as documented, Denies anxiety, Denies confusion, Denies depression, Denies paranoia, Denies suicidal ideation and Denies tactile hallucinations Endocrine Endocrine: Reports system reviewed and no additional complaints, except as documented and Denies fatigue Hematologic/Lymphatic Hematologic/Lymphatic: Reports system reviewed and no additional complaints, except as documented and Denies lymphadenopathy Allergic/Immunologic Allergic/Immunologic: Reports system reviewed and no additional complaints, except as documented, Denies throat swelling, Denies urticaria and Denies wheezing Past Medical History Past Medical History CARDIAC: Negative Cardiac Disorders or Congestive Heart Failure RESPIRATORY: Negative Chronic Obstructive Pulmonary Disease (COPD) or Asthma GENITOURINARY: Negative Renal Disease ENDOCRINE: Negative Diabetes Mellitus Type 1 or Diabetes Mellitus Type 2 HEMATOLOGIC: Negative Sickle Cell Disease Social History SMOKING STATUS: Never smoker SUBSTANCE USE: does not use ED Exam General Limitations: Present no limitations General appearance: Present alert and in no apparent distress Head Head exam: Present atraumatic Eye Eye exam: Present normal appearance, PERRL and EOMI ENT ENT exam: Present normal exam, normal oropharynx and mucous membranes moist Neck Neck exam: Present normal inspection, full ROM and trachea midline Chest Chest inspection: Present normal inspection and symmetric chest wall rise Respiratory Respiratory exam: Present normal lung sounds bilaterally Cardiovascular Cardiovascular exam: Present regular rate, normal rhythm and normal heart sounds Abdominal Exam Abdominal exam: Present soft and normal bowel sounds; Absent distention, tenderness, guarding or rebound Extremities Exam Extremities exam: Present normal inspection and full ROM Back Exam Back exam: Present normal inspection and full ROM Neurological Exam Neurological exam: Present alert, oriented X3 and CN II-XII intact Psychiatric Psychiatric exam: Present normal affect and normal mood Skin Skin exam: Present warm, dry, intact and normal color Course Quality Measures none Orders Category Date Time Status Dobson [Urinary Catheter] QS Care 06/15/25 11:36 Active Dobson to Leg Bag Routine Care 06/15/25 11:36 Ordered Vital Signs Vital signs: Vital Signs Temperature 98.4 F 06/15/25 11:27 Pulse Rate 82 06/15/25 11:27 Respiratory Rate 18 06/15/25 11:27 Blood Pressure 168/72 H 06/15/25 11:27 Pulse Oximetry (%) 95 06/15/25 11:27 Oxygen Delivery Method Room Air 06/15/25 11:27 Urogenital - Male MDM Narrative MDM Narrative:: 69-year-old male with history of BPH presents to the emergency room with a chief complaint of needing his Dobson catheter changed. Patient states he has had it in place for 4 months. Patient is hemodynamically stable and in no apparent distress Patient was seen by his urologist 2 days ago and was told that he will need to have a colonoscopy. Patient states his Dobson catheter has been in place for the last 4 months and he is here to get it replaced due to wear and tear. It is currently not leaking. Patient is currently on antibiotics Catheter was changed with no complications Patient was discharged and educated to follow-up with primary care provider in the next 24 to 48 hours and return to the emergency room for any evidence of worsening signs or symptoms Patient data External records reviewed:: [facility] previous records Clinical information provided by:: patient Social determinants that could affect healthcare access:: none Patient has the following chronic illnesses:: No chronic illness How is presenting disease/condition affected by chronic disease/condition?: no chronic disease Evaluation data The following diagnostics were reviewed and interpreted by me:: lab results and radiology exam(s) Lab and/or radiology exams considered but not ordered:: Labs and radiology exams considered and ordered Interpretation Summary: N/A Medications / Prescriptions Medications or Prescriptions considered but not ordered:: No medication given Medication administrations:: No medication given Consultations Consultation(s) initiated? (list below): No Diagnosis Urogenital Male Differential Diagnosis: urinary tract infection, acute retention of urine and other (Encounter for replacement of Dobson catheter) Most likely diagnosis given after review of the tests above:: Encounter for replacement of Dobson catheter Admission Indicated Admission indicated?: not indicated Admission Request Was there a request for admission?: No Disposition Plan Disposition Plan: Discharge Discharge Attestation Discharge Attestation: The patient and all family members were given an opportunity to ask questions and understood the discharge instructions. Discharge instructions specifically effects, indications for sooner follow up or return to the emergency department, and the expected course of current diagnosis. Patient condition: Stable Discharge Plan Plan Patient Disposition: HOME (Self Care) Discharge Disposition comment: Stable Prescriptions/Referrals Prescriptions/Med Rec: No Action levofloxacin 500 mg tablet 500 mg PO QDAY Qty: 7 0RF ibuprofen 600 mg tablet 600 mg PO Q6H Qty: 30 0RF cefuroxime axetil 500 mg tablet 500 mg PO BID Qty: 14 0RF tamsulosin [Flomax] 0.4 mg capsule 0.4 mg PO QDAY Qty: 30 0RF cephalexin 500 mg capsule 500 mg PO Q6H Qty: 42 0RF Problem List Clinical Impression: Encounter for Dobson catheter replacement Patient/Caregiver Discharge Instructions Additional Instructions: Please follow-up with your urologist in the next 24 to 48 hours Please continue to take your antibiotics as prescribed. Your catheter was replaced with no complications For any evidence of worsening signs or symptoms return to the emergency room immediately Print Language: Yoruba Stand Alone Forms: Radha Award Info., Patient Portal Info Letter PA/ACCOUNT SERVICES ANALYST Supervising Physician PA/REYES Supervising Physician: Dr. Ortega
== END 2025-06-15 12:16 | disposition home or self-care (01) ==
LOC: SERX 12:14
PROVIDERS: Emergency Provider Nurse Practitioner Family; PCP Internal Medicine
DX: Z46.6 Encounter for fitting and adjustment of urinary device (principal); N40.0 Benign prostatic hyperplasia without lower urinary tract symptoms
CPT/HCPCS: 51702; 99284; A4314

== ENCOUNTER → 2025-07-16 | Outpatient (CLI) | payer OTHER, SELFPAY ==
--- NOTE | 2025-07-16 10:59 | XR_ITS ---
Examination: Humerus 2 views right Technique: Humerus, AP lateral 2 views Date and time of exam: July 16, 2025, 1102 hours INDICATIONS: Right humerus pain beginning 2 weeks ago FINDINGS: Moderate narrowing glenohumeral joint No shoulder fracture or dislocation No foreign body IMPRESSION: No fracture or dislocation
--- NOTE | 2025-07-16 10:59 | XR_ITS ---
Examination: Forearm, right, 2 views. Technique: Forearm, AP, lateral 2 views Date and time of exam: July 16, 2025, 1102 hours INDICATIONS: Right forearm pain beginning 2 weeks ago. FINDINGS: Moderate narrowing radiocarpal joint No fracture or dislocation Mild osteoarthritis elbow joints IMPRESSION: Moderate narrowing radiocarpal joint Mild osteoarthritis elbow joints
== END | disposition home or self-care (01) ==
PROVIDERS: PCP Nurse Practitioner Family; Referring Provider Nurse Practitioner Family; Visit Provider Nurse Practitioner Family
DX: M19.021 Primary osteoarthritis, right elbow (principal); M25.511 Pain in right shoulder
CPT/HCPCS: 73060; 73090

== ENCOUNTER 2025-07-23 10:10 | Day surgery (SDC) | payer OTHER, SELFPAY ==
--- NOTE | 2025-07-21 07:00 | EKG_ITS ---
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
[2025-07-21 09:20] VITALS: BMI 35.5
[2025-07-21 10:08] LABS: Collection Type, Urine Clean Catch; Squamous Epithelial Cell,Urine 0 /hpf (0-5)
[2025-07-21 10:11] LABS: Basophils # (Auto) 0.0 Thou/mm3 (0.0-0.2); Basophils % (Auto) 1 % (0-2.5); Eosinophils # (Auto) 0.2 Thou/mm3 (0.0-0.5); Eosinophils % (Auto) 4 % (0-10); Hematocrit 40.1 % (41.0-53.0); Hemoglobin 13.8 g/dL (13.5-16.0); Immature Granulocytes Auto 0.02 Thou/mm3 (0.00-0.00); Lymphocytes # (Auto) 1.6 Thou/mm3 (1.0-4.8); Lymphocytes % (Auto) 32 % (10-50); Mean Corpuscular HGB Conc 34.4 g/dl (31.0-37.0); Mean Corpuscular Hemoglobin 31.6 pg (25.0-35.0); Mean Corpuscular Volume 92 fL (80-100); Monocytes # (Auto) 0.5 Thou/mm3 (0.0-0.8); Monocytes % (Auto) 9 % (0-12); Neutrophils # (Auto) 2.7 Thou/mm3 (1.8-7.7); Neutrophils % (Auto) 54 % (37-80); Nucleated Red Blood Cell # 0.00 Thou/mm3 (0.00-0.00); Nucleated Red Blood Cell % 0 /100 WBC (0); Platelet Count 198 Thou/mm3 (140-440); RDW Standard Deviation 47.1 fL (35.1-43.9); Red Blood Count 4.37 Miln/mm3 (4.50-5.90); White Blood Count 5.0 Thou/mm3 (3.8-10.6)
[2025-07-21 10:22] LABS: Bacteria,Urine 1+; Bilirubin,Urine Negative (Negative); Blood,Urine 1+ (Negative); Clarity,Urine Clear (Clear/Hazy); Color,Urine Lt-Yellow (Lt Yel-Yel); Glucose, Urine Negative (Negative); Ketones,Urine Negative (Negative); Leukocyte Esterase,Urine Positive (Negative); Nitrite,Urine Negative (Negative); PH,Urine 6.5 (5.0-7.0); Protein,Urine Trace (Neg - Trace); RBC,Urine 25 /hpf (0-3); Specific Gravity,Urine 1.011 (1.001-1.035); Urobilinogen,Urine Negative mg/dL (0.0-1.0); WBC,Urine 35 /hpf (0-5)
[2025-07-21 10:39] LABS: Alanine Aminotransferase 15 U/L (10-49); Albumin, Serum 4.1 gm/dL (3.4-4.8); Albumin/Globulin Ratio 1.6 (1.2-2.2); Alkaline Phosphatase 78 U/L (46-116); Anion Gap 9 (7-16); Aspartate Amino Transferase 19 U/L (0-34); BUN/Creatinine Ratio 10 Ratio (12-20); Bilirubin,Total 0.9 mg/dL (0.3-1.2); Blood Urea Nitrogen 9 mg/dL (9-23); Calcium 9.2 mg/dL (8.3-10.6); Calcium (Corrected) 9.2 mg/dL (8.5-10.1); Carbon Dioxide 29.2 mMol/L (20.0-31.0); Chloride 106 mMol/L (98-107); Creatinine (Component) 0.9 mg/dL (0.6-1.3); Estimated Creatinine Clearance 84.8 mL/min (>60); Globulin 2.6 gm/dL (2.3-3.5); Glucose 105 mg/dL (74-106); Osmolality,Calculated 285 (275-295); Potassium 4.0 mMol/L (3.4-5.1); Sodium 144 mMol/L (136-145); Total Protein 6.7 gm/dL (5.7-8.2); eGFR > 60 See Note
--- NOTE | 2025-07-22 12:25 | ESHP_ITS ---
RE: THERESA JAUREGUI : 1955 DATE OF ADMISSION: 07/22/2025 HISTORY OF PRESENT ILLNESS: Patient is a 69-year-old gentleman with history of urinary retention. PSA is 11.6. He also had some blood in his urine. Patient has history of some prostate cancer and was treated by Dr. Odom in the past. PAST SURGICAL HISTORY: Previous surgery cholecystectomy. SOCIAL HISTORY: He has 3 children. PAST MEDICAL HISTORY: No history of diabetes mellitus, no history of hypertension. HOME MEDICATIONS: Tamsulosin before. ALLERGIES: NONE KNOWN. PHYSICAL EXAMINATION: HEENT: Normal. Neck: Supple. Lungs: Clear. Cardiovascular: Heart sounds are normal. Abdomen: Soft without any organomegaly. No guarding, no rigidity. Extremities: Normal. : Phallus is normal. There is a Franco catheter in place testes are down in scrotum. Rectal examination reveals large prostate without any hard nodules. IMPRESSION: 1. Prostatism. 2. Prostatic obstruction. 3. Urinary retention. 4. Elevated PSA 11.6. PLAN: Cystoscopy, transrectal prostatic ultrasound with ultrasound guided prostatic needle biopsy. Patient had a CT scan of the abdomen and pelvis which revealed massive prostatomegaly with an AP dimension 8.6 cm. DT: 11:59:15 TT: 12:23:00 Ref: [id number] - TID: [id number]
[2025-07-23 10:33] VITALS: BP 151/78; PULSE 65; PULSE 80; RESP 16; TEMP 36.3; O2SAT 99
[2025-07-23] MEDS: RINGERS LACTATED 1000 ML 1,000 ML 20 ML IV (10:44)
--- NOTE | 2025-07-23 10:57 | SUR.PREOP ---
Patient expressed gratitude for prayer before their procedure.
--- NOTE | 2025-07-23 12:15 | XR_ITS ---
EXAMINATION: Transrectal prostate sonography Date and time: July 23, 2025, 1211 hours INDICATIONS: Prostate biopsies in the operative Room 5 physician TECHNIQUE AND FINDINGS: Grayscale sonographic images prostate for biopsy guidance Prostate volume 138.41 cc IMPRESSION: Transrectal prostate sonographic images for prostate biopsies
[2025-07-23 12:29] VITALS: BP 120/69; PULSE 67; RESP 16; TEMP 36.7; O2SAT 98
--- NOTE | 2025-07-23 12:29 | SUR.PHASEI ---
1229: received pt from OR via [facility]. received report from SOO Aparicio and Dr. Sosa. pt alert and oriented. no s/s pain or discomfort. no s/s of resp. distress or discomfort. no bleeding noted from penis. yusuf cath in place and intact with pinkish color urine.
[2025-07-23 12:35] VITALS: BP 115/82; PULSE 62; RESP 14; TEMP 36.7; O2SAT 99
[2025-07-23 12:40] VITALS: BP 127/80; PULSE 57; RESP 14; TEMP 36.5; O2SAT 97
--- NOTE | 2025-07-23 12:45 | SUR.PHASEI ---
Tolerating ice chips and water PO. No c/o pain nor n/v.
[2025-07-23 13:00] VITALS: BP 147/93; PULSE 64; RESP 16; TEMP 36.3; O2SAT 100
[2025-07-23 13:20] VITALS: BP 140/80; PULSE 60; RESP 13; TEMP 36.4; O2SAT 98
--- NOTE | 2025-07-23 16:16 | ESOP_ITS ---
RE: THERESA JAUREGUI : 1955 DATE OF OPERATION: 07/23/2025 PREOPERATIVE DIAGNOSES: Prostatism, prostatic obstruction, and elevated PSA of 11.6. History of possible cancer of the prostate. The patient has been treated by Dr. Odom before but there is no record on the hospital's chart and I have no record of that. POSTOPERATIVE DIAGNOSES: Prostatism, prostatic obstruction, elevated PSA of 11.6, history of possible cancer of the prostate, and catheter cystitis. PROCEDURES PERFORMED: Cystoscopy, transurethral bladder biopsies, transrectal prostatic ultrasound with ultrasound guided prostatic needle biopsy, and reinsertion of the Franco catheter. ANESTHESIA: Monitored anesthesia by Dr. Sosa. INDICATION: The patient is a 70-year-old gentleman with history of prostatism and prostatic obstruction. He went in urinary retention. He has been wearing a Franco catheter since May of this year. The patient was treated by Dr. Odom before and patient says there is some history of prostate cancer but there is no record in the hospital record and I did not get any record from Dr. Odom's office. The patient has been carrying a Franco catheter. His PSA has been up to 11.6. He is now scheduled to have cystoscopy and transrectal prostatic ultrasound with ultrasound guided prostatic needle biopsy. Planned procedure, risks, and complications have been discussed with the patient. The patient understood them and agreed to proceed. DESCRIPTION OF PROCEDURE: After the patient was brought to the operating table under adequate monitored anesthesia and dorsal lithotomy position, the Franco catheter from the bladder was removed. Cystoscope was then introduced into the bladder which revealed adequate urethral meatus and normal-appearing urethra. Prostate is bilobed, moderate to large prostate. There are some catheter cystitis changes. To rule out any bladder cancer, I did biopsies of that area on the dome of the bladder which is about 1 cm in size and appeared papillary in nature. I burnt and did a Bugbee electrode and burnt this area with a Bugbee electrode. There are no intravesical stones or tumors. Ureteral orifices are found to be normal in position and appearance. Scope was withdrawn. The patient was then turned in left lateral position and transrectal prostatic ultrasound was carried out. Biopsies were obtained from both lobes using ultrasound guidance. Prostatic volume was measured at 138.4 cubic cm. After the biopsies were done, the patient was then turned in supine position and in sterile condition, a 16 inch Macedonian Franco catheter was then inserted into the bladder and was left indwelling. The patient tolerated the entire procedure well and left the room in good condition. DT: 12:58:46 TT: 16:14:00 Ref: [id number] - TID: [id number]
== END 2025-07-23 13:36 | disposition home or self-care (01) ==
PROVIDERS: Anesthesiology; Absent Provider Surgery; PCP Internal Medicine; Referring Provider Surgery; Visit Provider Surgery
PROC: 0TJB8ZZ Inspection of Bladder, Via Natural or Artificial Opening Endoscopic (ICD-10-PCS; CPT 52000; principal; 2025-07-23 12:15)
PROC: (CPT 55700; 2025-07-23 12:15)
DX: N40.1 Benign prostatic hyperplasia with lower urinary tract symptoms (principal); N13.8 Other obstructive and reflux uropathy; R33.8 Other retention of urine; Z01.810 Encounter for preprocedural cardiovascular examination; N30.01 Acute cystitis with hematuria; N30.21 Other chronic cystitis with hematuria
CPT/HCPCS: 52204; 55700; 36415; 76942; 80053; 81001; 85025; 87077; 87086; 87186; 93005; A4217; A4649; J0694; J2704; J3010; J7120

== ENCOUNTER 2025-08-12 23:32 | Emergency (ER) | payer OTHER, SELFPAY ==
[2025-08-12 23:47] VITALS: BP 152/64; PULSE 93; RESP 18; TEMP 37.4; O2SAT 98
--- NOTE | 2025-08-13 00:15 | PD.EDMALE ---
ED Male Genitalurinary RME/HPI General Chief complaint: Urogenital-Male Stated complaint: UNABLE TO URINATE Time Seen by Provider: 08/12/25 23:54 Source: patient, RN notes reviewed and old records reviewed Arrival date/time: 08/12/25 23:32 Mode of arrival: ambulatory Limitations: no limitations RME / HPI RME / HPI Narrative: 70yom presents to ED for urinary retention. Patient states Dr. Read removed yusuf in clinic at 1000 this morning, patient has been unable to urinate since then. He c/o bladder fullness. No fever, nausea/vomiting or flank pain reported. 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 Home Medications ?Medication ?Instructions ?Recorded ?Confirmed No Known Home Medications 07/21/25 07/21/25 Allergies Allergy/AdvReac Type Severity Reaction Status Date / Time No Known Allergies Allergy Verified 07/23/25 10:32 Review of Systems Review of Systems Systems Reviewed: All systems reviewed, normal except as documented Genitourinary Comments: Reports urine retention, bladder pain Past Medical History Past Medical History GASTROINTESTINAL: Positive Obesity GENITOURINARY: Positive Benign Prostatic Hyperplasia Surgical History SURGICAL: Positive Abdominal Surgery (Appendectomy) Social History SMOKING STATUS: Never smoker SUBSTANCE USE: does not use ALCOHOL: Never ED Exam General Limitations: Present no limitations General appearance: Present alert, in no apparent distress and other (Appears uncomfortable 2/2 pain) Head Head exam: Present atraumatic and normocephalic Eye Eye exam: Present normal appearance, PERRL and EOMI ENT ENT exam: Present normal exam and mucous membranes moist Neck Neck exam: Present normal inspection and full ROM Chest Chest inspection: Present normal inspection and symmetric chest wall rise Respiratory Respiratory exam: Present normal lung sounds bilaterally; Absent respiratory distress Cardiovascular Cardiovascular exam: Present regular rate and normal rhythm Abdominal Exam Abdominal exam: Present soft, distention (Bladder) and tenderness (Suprapubic); Absent guarding or rebound Extremities Exam Extremities exam: Present normal inspection and full ROM Back Exam Back exam: Absent CVA tenderness (R) or CVA tenderness (L) Neurological Exam Neurological exam: Present alert and oriented X3 Psychiatric Psychiatric exam: Present normal affect and normal mood Skin Skin exam: Present warm, dry, intact and normal color Course Quality Measures none Vital Signs Vital signs: Vital Signs Temperature 99.3 F 08/12/25 23:47 Pulse Rate 93 08/12/25 23:47 Respiratory Rate 18 08/12/25 23:47 Blood Pressure 152/64 H 08/12/25 23:47 Pulse Oximetry (%) 98 08/12/25 23:47 Oxygen Delivery Method Room Air 08/12/25 23:47 Urogenital - Male MDM Narrative MDM Narrative:: 70yom presents to ED for urinary retention. Patient states Dr. Read removed yusuf in clinic at 1000 this morning, patient has been unable to urinate since then. He c/o bladder fullness. No fever, nausea/vomiting or flank pain reported. 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 Encouraged close follow-up with urology. Stable for discharge, RTED precautions given Patient data External records reviewed:: [facility] previous records (06/15/2025 ED visit for Yusuf catheter replacement) Clinical information provided by:: patient Social determinants that could affect healthcare access:: none Patient has the following chronic illnesses:: BPH How is presenting disease/condition affected by chronic disease/condition?: caused by Evaluation data The following diagnostics were reviewed and interpreted by me:: other (specify) (None) Lab and/or radiology exams considered but not ordered:: UA Interpretation Summary: na Medications / Prescriptions Medications or Prescriptions considered but not ordered:: None Medication administrations:: None Consultations Consultation(s) initiated? (list below): No Diagnosis Urogenital Male Differential Diagnosis: urinary tract infection, urethritis, prostatitis and acute retention of urine Most likely diagnosis given after review of the tests above:: Urinary retention Admission Indicated Admission indicated?: not indicated Admission Request Was there a request for admission?: No Disposition Plan Disposition Plan: Discharge Discharge Attestation Discharge Attestation: The patient and all family members were given an opportunity to ask questions and understood the discharge instructions. Discharge instructions specifically effects, indications for sooner follow up or return to the emergency department, and the expected course of current diagnosis. Patient condition: Stable Discharge Plan Plan Patient Disposition: HOME (Self Care) Patient condition on transfer: Stable Prescriptions/Referrals Prescriptions/Med Rec: No Action No Known Home Medications Problem List Clinical Impression: Acute retention of urine Patient/Caregiver Discharge Instructions Education Materials: ED Urinary Retention, Male Additional Instructions: Follow-up with Dr. Read in clinic Print Language: Greek Stand Alone Forms: Radha Award Info., Patient Portal Info Letter PA/FOUNDER / CEO Supervising Physician ROBERT/FOUNDER / CEO Supervising Physician: Emir
== END 2025-08-13 01:07 | disposition home or self-care (01) ==
LOC: SERX 08-13 00:47
PROVIDERS: Emergency Provider Emergency Medicine; PCP Internal Medicine
DX: R33.9 Retention of urine, unspecified (principal)
CPT/HCPCS: 51702; 99282; A4314

== ENCOUNTER 2025-09-01 23:57 | Emergency (ER) | payer OTHER, SELFPAY ==
[2025-09-01 23:58] VITALS: BP 156/79; PULSE 100; RESP 18; TEMP 37; O2SAT 96
[2025-09-02 00:30] LABS: Collection Type, Urine Clean Catch
--- NOTE | 2025-09-02 00:30 | PD.EDMALE ---
ED Male Genitalurinary RME/HPI General Chief complaint: Urogenital-Male Stated complaint: CANT URINATE Time Seen by Provider: 09/02/25 00:21 Arrival date/time: 09/01/25 23:57 RME / HPI RME / HPI Narrative: See [facility] for Dr. Chiu's HPI Documentation. Related Data Previous Rx's ?Medication ?Instructions ?Recorded cefdinir 300 mg capsule 300 mg PO BID #14 caps 09/02/25 Allergies Allergy/AdvReac Type Severity Reaction Status Date / Time No Known Allergies Allergy Verified 09/01/25 23:58 Review of Systems Review of Systems Systems Reviewed: All systems reviewed, normal except as documented Past Medical History Past Medical History GASTROINTESTINAL: Positive Gastrointestinal Disorders and Obesity GENITOURINARY: Positive Genitourinary Disorders and Benign Prostatic Hyperplasia MUSCULOSKELETAL: Positive Musculoskeletal Disorders, Arthritis and Poliovirus (as a child, face droop) Family History FAMILY HISTORY: Positive Family Cardiac Disorders Surgical History SURGICAL: Positive Abdominal Surgery (Appendectomy) ED Exam Narrative Physical exam: See [facility] for Dr. Chiu's Physical Exam Documentation. Course Quality Measures none Orders Category Date Time Status Franco [Urinary Catheter] QS Care 09/02/25 00:32 Completed Franco to Leg Bag Routine Care 09/02/25 00:11 Ordered UA, C/S IF [Urinalysis, C/S if Indicated] Stat Lab 09/02/25 00:25 Completed Urine Culture Stat Lab 09/02/25 00:25 Received cefTRIAXone [Rocephin] 1,000 mg Med 09/02/25 00:58 Discontinued Lidocaine 1% Pf Vial 5ml [Xylocaine 1% 5 ml] 2.1 ml IM X1 cefTRIAXone/D5w 1gm IV premix [Rocephin/D5w 1gm IV Med 09/02/25 00:48 Discontinued premix] 1 g in 50 ml IV X1 Vital Signs Vital signs: Vital Signs Temperature 98.6 F 09/01/25 23:58 Pulse Rate 100 09/01/25 23:58 Respiratory Rate 18 09/01/25 23:58 Blood Pressure 156/79 H 09/01/25 23:58 Pulse Oximetry (%) 96 09/01/25 23:58 Oxygen Delivery Method Room Air 09/01/25 23:58 Urogenital - Male MDM Narrative MDM Narrative:: This section includes all my notes and documentations, including HPI, PE, and ED course. Nguyễn Chiu MD HPI: 70 y/o male with Hx of BPH presents with urine retention all day today after his Franco was removed at his doctor's office in the morning. No back pain or flank pain or abdominal pain. No fever or chills. No hematuria. No other complaints. ROS: All negative except as documented in HPI. Physical Exam: General: Alert and oriented. No acute distress when remaining still. Eyes: Conjunctivae and lids clear. ENT: No nasal congestion. Neck: Supple. Heart: RRR. Lungs: No respiratory distress. Good air movement. No rhonchi, wheezing, rales. Abdomen: Soft and nontender. Normal bowel sounds. No distension. No rebound or guarding. Back: No CVA tenderness. Skin: Warm and dry. Neuro: Alert and oriented X 3. I reviewed all diagnostic test results: UA remarkable for leukocyte esterase, 26 RBC, 34 WBC. At this point, diagnoses include: Urinary Retention UTI Treatment here included: Rocephin 1 G IM Franco Catheter Placement Recommended outpatient treatment. Based on my best medical judgment, made decision no further evaluation or treatment indicated at this time. Patient understands and agrees to the discharge instructions customized and printed, see below. Discharge instructions from Dr. Chiu: 1. After evaluation, you have UTI (see attached handout). 2. Take cefdinir to kill the germs causing the infection. 3. For good hydration, increase oral fluid and maintain clear urine. If dark or yellow, increase oral fluid. 4. Care of the Franco catheter as instructed in the attached handout. 5. See a private doctor on 09/06/2025 for recheck. Ask to check the final urine culture results from today to make sure cefdinir doesn't need to be changed due to resistance. Ask for referral to see urologist. 6. Seek immediate medical care with worsening, fever, or with any concerns. Nguyễn Chiu MD Patient data External records reviewed:: [facility] previous records (Reviewed prior ED records from 08/13/25. Patient was seen for Acute retention of urine.) Clinical information provided by:: patient Social determinants that could affect healthcare access:: none Patient has the following chronic illnesses:: Obesity, Benign Prostatic Hyperplasia, Arthritis and Poliovirus How is presenting disease/condition affected by chronic disease/condition?: exacerbated by Evaluation data The following diagnostics were reviewed and interpreted by me:: lab results Lab and/or radiology exams considered but not ordered:: None Interpretation Summary: I reviewed all diagnostic test results: UA remarkable for leukocyte esterase, 26 RBC, 34 WBC. Medications / Prescriptions Medications or Prescriptions considered but not ordered:: None Medication administrations:: Medication Administration History Discontinued Medications Ceftriaxone Sodium 1,000 mg/ (Lidocaine HCl 2.1 ml) 0 mg IM X1 ONE Stop: 09/02/25 00:59 Last Admin: 09/02/25 01:10 Dose: 2.1 mg Documented By: ENDER Ceftriaxone Sodium/Dextrose (Rocephin/D5w 1gm Iv Premix) 1 g in 50 mls @ 100 mls/hr IV X1 ONE Stop: 09/02/25 01:17 Last Admin: 09/02/25 00:59 Dose: Not Given Documented By: JOSEPH Non-Admin Reason: Cancelled by Provider Rocephin 1 G IM Franco catheter insertion Consultations Consultation(s) initiated? (list below): No Diagnosis Urogenital Male Differential Diagnosis: urinary tract infection, acute retention of urine and other Most likely diagnosis given after review of the tests above:: Urinary Retention UTI Admission Indicated Admission indicated?: not indicated Explain why admission is indicated or not indicated:: With significant improvement and no condition needing emergent intervention, there was no indication for admission. Admission Request Was there a request for admission?: No Disposition Plan Disposition Plan: Discharge Discharge Attestation Discharge Attestation: The patient and all family members were given an opportunity to ask questions and understood the discharge instructions. Discharge instructions specifically effects, indications for sooner follow up or return to the emergency department, and the expected course of current diagnosis. Patient condition: Stable Discharge Plan Plan Patient Disposition: HOME (Self Care) Prescriptions/Referrals Prescriptions/Med Rec: New cefdinir 300 mg capsule 300 mg PO BID Qty: 14 0RF Problem List Clinical Impression: Urinary tract infection, Urinary retention Patient/Caregiver Discharge Instructions Discharge Activity: activity as tolerated Education Materials: ED Franco Catheter, Care, ED Bladder Infection, Male (Adult) Additional Instructions: Discharge instructions from Dr. Chiu: 1. After evaluation, you have UTI (see attached handout). 2. Take cefdinir to kill the germs causing the infection. 3. For good hydration, increase oral fluid and maintain clear urine. If dark or yellow, increase oral fluid. 4. Care of the Franco catheter as instructed in the attached handout. 5. See a private doctor on 09/06/2025 for recheck. Ask to check the final urine culture results from today to make sure cefdinir doesn't need to be changed due to resistance. Ask for referral to see urologist. 6. Seek immediate medical care with worsening, fever, or with any concerns. Print Language: Mozambican Stand Alone Forms: Radha Award Info., Patient Portal Info Letter
[2025-09-02 00:35] LABS: Bilirubin,Urine Negative (Negative); Blood,Urine 2+ (Negative); Clarity,Urine Clear (Clear/Hazy); Color,Urine Lt-Yellow (Lt Yel-Yel); Glucose, Urine Negative (Negative); Hyaline Casts,Urine < 1 /hpf (0-1); Ketones,Urine Negative (Negative); Leukocyte Esterase,Urine Positive (Negative); Nitrite,Urine Negative (Negative); PH,Urine 5.5 (5.0-7.0); Protein,Urine Negative (Neg - Trace); RBC,Urine 26 /hpf (0-3); Specific Gravity,Urine 1.013 (1.001-1.035); Squamous Epithelial Cell,Urine < 1 /hpf (0-5); Urobilinogen,Urine Negative mg/dL (0.0-1.0); WBC,Urine 34 /hpf (0-5)
[2025-09-02 00:43] LABS: Culture Indicated,Urine Yes
== END 2025-09-02 01:15 | disposition home or self-care (01) ==
LOC: SERX 09-02 02:25
PROVIDERS: Emergency Provider Emergency Medicine
DX: N39.0 Urinary tract infection, site not specified (principal); N40.1 Benign prostatic hyperplasia with lower urinary tract symptoms; R33.8 Other retention of urine
CPT/HCPCS: 51702; 81001; 87077; 87086; 87186; 96372; 99283; A4314; J0696; J3490

== ENCOUNTER 2025-09-29 12:35 | Emergency (ER) | payer OTHER, SELFPAY ==
[2025-09-29 13:06] VITALS: BP 144/53; PULSE 88; RESP 20; TEMP 37; O2SAT 98
--- NOTE | 2025-09-29 13:19 | EDNOTE_ITS ---
ED Male Genitalurinary RME/HPI General Chief complaint: Urogenital-Male Stated complaint: NEEDS DOBSON CATH REPLACED Time Seen by Provider: 09/29/25 12:39 Arrival date/time: 09/29/25 12:35 70-year-old male presents to the emergency department today requesting Dobson catheter placement patient has Dobson catheter in place and reports that is leaking patient reports he has follow-up next month with specialist Limitations: no limitations Related Data Previous Rx's ?Medication ?Instructions ?Recorded cefdinir 300 mg capsule 300 mg PO BID #14 caps 09/02 Allergies Allergy/AdvReac Type Severity Reaction Status Date / Time No Known Allergies Allergy Verified 09/29/25 12:37 Review of Systems Review of Systems Systems Reviewed: All systems reviewed, normal except as documented Constitutional Constitutional: Reports system reviewed and no additional complaints, except as documented, Denies fever(s) and Denies headache(s) Eyes Eyes: Reports system reviewed and no additional complaints, except as documented and Denies blurry vision ENT Ears, Nose, Mouth, and Throat: Reports system reviewed and no additional complaints, except as documented, Denies headache(s), Denies nasal congestion and Denies nasal discharge Cardiovascular Cardiovascular: Reports system reviewed and no additional complaints, except as documented, Denies chest pain and Denies dyspnea Respiratory Respiratory: Reports system reviewed and no additional complaints, except as documented, Denies chest congestion, Denies cough and Denies dyspnea Gastrointestinal Gastrointestinal: Reports system reviewed and no additional complaints, except as documented and Denies abdominal pain Genitourinary Genitourinary: Reports system reviewed and no additional complaints, except as documented, Denies dysuria and Reports other (Dobson catheter in place) Integumentary/Breasts Skin/Breast: Reports system reviewed and no additional complaints, except as documented and Denies rash Neurologic Neurologic: Reports system reviewed and no additional complaints, except as documented, Reports as per HPI and Denies headache(s) Past Medical History Past Medical History NEUROLOGIC: Negative Neurological Disorders or Seizures CARDIAC: Negative Cardiac Disorders or Congestive Heart Failure RESPIRATORY: Negative Chronic Obstructive Pulmonary Disease (COPD) or Asthma GASTROINTESTINAL: Positive Gastrointestinal Disorders and Obesity; Negative Hepatitis GENITOURINARY: Positive Genitourinary Disorders and Benign Prostatic Hyperplasia; Negative Renal Disease MUSCULOSKELETAL: Positive Musculoskeletal Disorders, Arthritis and Poliovirus (as a child, face droop) ENDOCRINE: Negative Endocrine Disorders, Diabetes Mellitus Type 1 or Diabetes Mellitus Type 2 HEMATOLOGIC: Negative Blood Disorders or Sickle Cell Disease OTHER HISTORY: Negative Hospitalization, Autoimmune Disease, Down Syndrome, Developmental Delay, Shingles, Blood Transfusions, Blood Transfusion Reaction, Anesthesia Reactions, Human Immunodeficiency Virus (HIV), Chicken Pox, Measles, Mumps, Rubella (Macedonian Measles), Pertussis, Clostridium Difficile or Cancer Family History FAMILY HISTORY: Positive Family Cardiac Disorders; Negative Family Psychiatric Problems, Family Respiratory Disorders, Family Gastrointestinal Problems, Family Cancer, Family Surgery or Family Anesthesia Reaction Surgical History SURGICAL: Positive Abdominal Surgery (Appendectomy) Social History SMOKING STATUS: Never smoker SUBSTANCE USE: does not use ED Exam General Limitations: Present no limitations General appearance: Present alert and in no apparent distress Head Head exam: Present atraumatic Eye Eye exam: Present normal appearance, PERRL and EOMI ENT ENT exam: Present normal exam, normal oropharynx and mucous membranes moist Neck Neck exam: Present normal inspection, full ROM and trachea midline Chest Chest inspection: Present normal inspection and symmetric chest wall rise Respiratory Respiratory exam: Present normal lung sounds bilaterally Cardiovascular Cardiovascular exam: Present regular rate, normal rhythm and normal heart sounds Abdominal Exam Abdominal exam: Present soft and normal bowel sounds; Absent distention or tenderness exam: Present other (Dobson catheter in place) Extremities Exam Extremities exam: Present normal inspection and full ROM Back Exam Back exam: Present normal inspection and full ROM Neurological Exam Neurological exam: Present alert, oriented X3 and CN II-XII intact Psychiatric Psychiatric exam: Present normal affect and normal mood Skin Skin exam: Present warm, dry, intact and normal color Course Quality Measures none Orders Category Date Time Status Dobson [Urinary Catheter] NOW Care 09/29/25 13:19 Completed Dobson to Leg Bag Routine Care 09/29/25 13:19 Ordered Vital Signs Vital signs: Vital Signs Temperature 98.6 F 09/29/25 13:06 Pulse Rate 88 09/29/25 13:06 Respiratory Rate 20 09/29/25 13:06 Blood Pressure 144/53 H 09/29/25 13:06 Pulse Oximetry (%) 98 09/29/25 13:06 Oxygen Delivery Method Room Air 09/29/25 13:06 O2 saturation 98% room air within the limits Urogenital - Male MDM Narrative MDM Narrative:: 70-year-old male presents to the emergency department today requesting Dobson catheter placement patient has Dobson catheter in place and reports that is leaking patient reports he has follow-up next month with specialist On exam patient well-appearing does not appear ill or toxic distress Dobson catheter placed Patient discharged home in no distress to follow-up with primary care doctor in the next 24 to 48 hours and for any worsening symptoms to return to the ER immediately Patient data External records reviewed:: [facility] previous records Clinical information provided by:: patient Social determinants that could affect healthcare access:: none Patient has the following chronic illnesses:: None How is presenting disease/condition affected by chronic disease/condition?: no chronic disease Evaluation data The following diagnostics were reviewed and interpreted by me:: other (specify) (N/A) Lab and/or radiology exams considered but not ordered:: Considered not ordered Interpretation Summary: N/A Medications / Prescriptions Medications or Prescriptions considered but not ordered:: Given Medication administrations:: Given Consultations Consultation(s) initiated? (list below): No Diagnosis Urogenital Male Differential Diagnosis: other (Dysuria, Dobson catheter in place, urinary retention) Most likely diagnosis given after review of the tests above:: Urinary retention chronic, Dobson catheter in place Admission Indicated Admission indicated?: not indicated Admission Request Was there a request for admission?: No Disposition Plan Disposition Plan: Discharge Discharge Attestation Discharge Attestation: The patient and all family members were given an opportunity to ask questions and understood the discharge instructions. Discharge instructions specifically effects, indications for sooner follow up or return to the emergency department, and the expected course of current diagnosis. Patient condition: Stable Discharge Plan Plan Patient Disposition: HOME (Self Care) Discharge Disposition comment: Stable Prescriptions/Referrals Prescriptions/Med Rec: No Action cefdinir 300 mg capsule 300 mg PO BID Qty: 14 0RF Problem List Clinical Impression: Encounter for Dobson catheter replacement Patient/Caregiver Discharge Instructions Additional Instructions: Please follow up with your primary care doctor in the next 24-48hrs for any worsening symptoms return here immediately Print Language: Ukrainian Stand Alone Forms: Radha Award Info., Patient Portal Info Letter PA/DIALYSIS TECH Supervising Physician ROBERT/REYES Supervising Physician: Dr. theodore
== END 2025-09-29 14:43 | disposition home or self-care (01) ==
LOC: SERX 14:03
PROVIDERS: Emergency Provider Family Medicine; PCP Internal Medicine
DX: Z46.6 Encounter for fitting and adjustment of urinary device (principal)
CPT/HCPCS: 51702; 99282; A4314